=== PATIENT | male | born 1985 | race Caucasian/White ===

== ENCOUNTER 2016-10-07 11:06 | Emergency (ER) | payer OTHER ==
[~2016-10-07] VITALS: Ht 167.6 cm; Wt 88.0 kg
[~2016-10-07 11:06] MED LIST: ACETAMINOPHEN325 M1 PO; BENZTROPINE MESY1 MG PO; COLACE100 MG PO; DAILY VITE1 EAC1 PO; DEPAKOTE ER500 MG PO; DIAZEPAM5 MG PO; DOCUPRENE100 MG PO; DULCOLAX10 MG PR; ENULOSE10 GM/15 M PO; IMODIUM MS REL1 EACH PO; LATANOPROST2.5 ML BOTH EYES; LIPITOR40 MG PO; LISINOPRIL20 MG PO; MECLIZINE HCL25 MG PO; NORVASC10 MG PO; NYSTOP60 GM; OXCARBAZEPINE600 MG PO; OXTELLAR XR600 MG PO; PANTOPRAZOLE SO40 MG; POLYETHYLENE G255 GM PO; PRILOSEC20 MG PO; PROAIR HFA8.5 GM IH; PROPRANOLOL HCL20 MG PO; QUETIAPINE FUM100 MG PO; RISPERIDONE2 MG PO; SEROQUEL XR400 MG PO; SINGULAIR10 MG PO; VITAMIN D250000 UNIT; ZANTAC150 MG PO; ZESTRIL,PRINIVI10 MG PO
[2016-10-07 13:08] LABS: ADD MIUA? NO; BILIRUBIN NEGATIVE; BLOOD NEGATIVE; COLOR YELLOW ((YELLOW)); GLUCOSE (STRIP) NEGATIVE; KETONES NEGATIVE; LEUKOCYTES NEGATIVE; NITRITE NEGATIVE; PROTEIN (STRIP) NEGATIVE; SPECIFIC GRAVITY 1.015 (1.000-1.030); UROBILINOGEN 0.2 MG/DL (0.2-1.0)
[2016-10-07 14:02] LABS: EOSINOPHIL (%) 0.6 % (0-5); HEMATOCRIT 42.6 % (38.0-50.0); IMMATURE GRANULOCYTE (%) 0.4 % (0.0-0.7); INSTRUMENT ABS NEUTROPHIL CT 3.4 K/uL; LYMPHOCYTE COUNT 0.9 K/uL (1.0-2.8); MCH 29.1 PG (29.0-34.0); MCV 85.5 FL (86-99); MEAN PLAT.VOLUME 10.3 uM^3 (9.0-12.4); MONOCYTE (%) 5.6 % (3-12); MONOCYTE COUNT 0.3 K/uL (0-0.8); NEUTROPHIL (%) 73.7 % (45-76); NEUTROPHIL COUNT 3.4 K/uL (1.8-6.4); PLATELET COUNT 126 K/uL (156-360); RBC DIS.WIDTH-CV 13.3 % (11.8-14.6); RBC DIS.WIDTH-SD 41.1 % (39-53); RED BLOOD COUNT 4.98 M/uL (4.00-5.50); WHITE BLOOD COUNT 4.7 K/uL (4.1-10.2)
[2016-10-07 14:08] LABS: AMPHETAMINE NEGATIVE (500 ng/mL); BARBITURATES NEGATIVE (200 ng/mL); BENZODIAZEPINES NEGATIVE (150 ng/mL); COCAINE NEGATIVE (150 ng/mL); INTERNAL CONTROLS VALID? YES; METHADONE NEGATIVE (200 ng/mL); METHAMPHETAMINE NEGATIVE (500 ng/mL); OPIATES (MORPHINE) NEGATIVE (100 ng/mL); OXYCODONE NEGATIVE (100 ng/mL); PHENCYCLIDINE NEGATIVE (25 ng/mL); PROPOXYPHENE NEGATIVE (300 ng/mL); THC CANNABINOIDS NEGATIVE (50 ng/mL); TRICYCLIC ANTIDEPRESSANTS PRESUMPTIVE POSITIVE (300 ng/mL)
[2016-10-07 14:11] LABS: CHLORIDE 103 mEq/L (99-109); POTASSIUM 3.9 mEq/L (3.7-5.4); SODIUM 136 mEq/L (136-147)
[2016-10-07 14:13] LABS: GLUCOSE 77 mg/dL (70-99)
[2016-10-07 14:14] LABS: ANION GAP 12 MEQ/L (2-14)
[2016-10-07 14:16] LABS: SERUM ETHYL ALCOHOL < 10 mg/dL
[2016-10-07 14:17] LABS: GFR ESTIMATE (CALCULATED) > 59 mL/min/
[2016-10-07 14:18] LABS: UREA NITROGEN (BUN) 9 mg/dL (9-23)
[2016-10-07 17:50] VITALS: BP 120/76
== END 2016-10-07 19:19 ==
LOC: EME 11:06
PROVIDERS: Emergency Medicine
DX: S60.812A Abrasion of left wrist, initial encounter (principal); X78.8XXA Intentional self-harm by other sharp object, initial encounter; Y92.199 Unspecified place in other specified residential institution as the place of occurrence of the external cause; F31.9 Bipolar disorder, unspecified; Z87.820 Personal history of traumatic brain injury; I10 Essential (primary) hypertension; J45.909 Unspecified asthma, uncomplicated; K21.9 Gastro-esophageal reflux disease without esophagitis; Z95.1 Presence of aortocoronary bypass graft
CPT/HCPCS: 80048; 81003; 85025; 90837; 99281; 99285; G0480

== ENCOUNTER 2016-12-22 19:31 | Emergency (ER) | payer OTHER ==
[~2016-12-22] VITALS: Ht 177.8 cm; Wt 87.6 kg
[2016-12-22 22:05] LABS: HEMATOCRIT 40.6 % (38.0-50.0); MCH 29.3 PG (29.0-34.0); MCHC 34.7 G/DL (30.0-36.0); MCV 84.2 FL (86-99); MEAN PLAT.VOLUME 10.5 uM^3 (9.0-12.4); PLATELET COUNT 153 K/uL (156-360); RBC DIS.WIDTH-CV 13.1 % (11.8-14.6); RBC DIS.WIDTH-SD 40.2 % (39-53); RED BLOOD COUNT 4.82 M/uL (4.00-5.50); WHITE BLOOD COUNT 6.5 K/uL (4.1-10.2)
[2016-12-22 22:15] LABS: CHLORIDE 104 mEq/L (99-109); POTASSIUM 4.3 mEq/L (3.7-5.4); SODIUM 136 mEq/L (136-147)
[2016-12-22 22:16] LABS: GLUCOSE 100 mg/dL (70-99)
[2016-12-22 22:18] LABS: ANION GAP 8 MEQ/L (2-14)
[2016-12-22 22:19] LABS: SERUM ETHYL ALCOHOL < 10 mg/dL
[2016-12-22 22:20] LABS: GFR ESTIMATE (CALCULATED) > 59 mL/min/
[2016-12-22 22:21] LABS: UREA NITROGEN (BUN) 13 mg/dL (9-23)
[2016-12-23 00:06] VITALS: BP 131/80
== END 2016-12-23 00:08 ==
LOC: EME 19:31
PROVIDERS: Emergency Medicine
DX: F32.9 Major depressive disorder, single episode, unspecified (principal); R45.851 Suicidal ideations; F31.9 Bipolar disorder, unspecified; K21.9 Gastro-esophageal reflux disease without esophagitis; I10 Essential (primary) hypertension; J45.909 Unspecified asthma, uncomplicated; Z87.820 Personal history of traumatic brain injury; Z95.1 Presence of aortocoronary bypass graft; Z98.2 Presence of cerebrospinal fluid drainage device
CPT/HCPCS: 80048; 81003; 85027; 90837; 99281; 99285; G0480

== ENCOUNTER 2017-04-11 12:11 | Emergency (ER) | payer OTHER ==
[~2017-04-11] VITALS: Ht 167.6 cm; Wt 89.3 kg
[2017-04-11 13:33] LABS: HEMATOCRIT 39.5 % (38.0-50.0); MCH 29.8 PG (29.0-34.0); MCHC 34.7 G/DL (30.0-36.0); MCV 85.9 FL (86-99); MEAN PLAT.VOLUME 10.6 uM^3 (9.0-12.4); PLATELET COUNT 133 K/uL (156-360); RBC DIS.WIDTH-CV 13.1 % (11.8-14.6); RBC DIS.WIDTH-SD 40.4 % (39-53); WHITE BLOOD COUNT 4.9 K/uL (4.1-10.2)
[2017-04-11 14:04] LABS: ANION GAP 7 MEQ/L (2-14); CHLORIDE 101 MEQ/L (99-109); GFR ESTIMATE (CALCULATED) > 59 mL/min/; GLUCOSE 84 mg/dL (70-99); POTASSIUM 4.1 MEQ/L (3.7-5.4); SAMPLE HEMOLYSIS CHECK 1; SAMPLE ICTERIC CHECK 0; SAMPLE LIPEMIA CHECK 0; SERUM ETHYL ALCOHOL < 10 mg/dL; SODIUM 133 MEQ/L (136-147); UREA NITROGEN (BUN) 11 mg/dL (9-23)
[2017-04-11 14:21] VITALS: BP 122/80
== END 2017-04-11 14:23 | disposition home or self-care (01) ==
LOC: EME 12:11
DX: F32.9 Major depressive disorder, single episode, unspecified (principal); F31.9 Bipolar disorder, unspecified; I10 Essential (primary) hypertension; K21.9 Gastro-esophageal reflux disease without esophagitis; J45.909 Unspecified asthma, uncomplicated; Z95.1 Presence of aortocoronary bypass graft; Z98.2 Presence of cerebrospinal fluid drainage device; Z87.820 Personal history of traumatic brain injury; Z88.8 Allergy status to other drugs, medicaments and biological substances
CPT/HCPCS: 80048; 85027; 90839; 99281; 99284; G0480

== ENCOUNTER 2017-04-11 16:37 | Emergency (ER) | payer OTHER ==
[~2017-04-11] VITALS: Ht 175.3 cm; Wt 89.2 kg
[2017-04-11 22:52] VITALS: BP 110/77
== END 2017-04-11 22:55 | disposition home or self-care (01) ==
LOC: RME 16:37 → EME 16:37 → RME 22:55
DX: S09.90XA Unspecified injury of head, initial encounter (principal); S40.011A Contusion of right shoulder, initial encounter; W01.198A Fall on same level from slipping, tripping and stumbling with subsequent striking against other object, initial encounter; K21.9 Gastro-esophageal reflux disease without esophagitis; I10 Essential (primary) hypertension; J45.909 Unspecified asthma, uncomplicated; F31.9 Bipolar disorder, unspecified; Z91.81 History of falling; Z87.820 Personal history of traumatic brain injury; Z95.1 Presence of aortocoronary bypass graft; Z98.2 Presence of cerebrospinal fluid drainage device; Z88.8 Allergy status to other drugs, medicaments and biological substances
CPT/HCPCS: 70450; 73030; 99281; 99283

== ENCOUNTER 2017-04-17 14:06 | Emergency (ER) | payer OTHER ==
[~2017-04-17] VITALS: Ht 170.2 cm; Wt 87.5 kg
[2017-04-17 15:58] VITALS: BP 129/75
== END 2017-04-17 15:59 | disposition home or self-care (01) ==
LOC: EME 14:06
DX: M79.652 Pain in left thigh (principal); R26.2 Difficulty in walking, not elsewhere classified; Z91.81 History of falling; I10 Essential (primary) hypertension; J45.909 Unspecified asthma, uncomplicated; Z95.1 Presence of aortocoronary bypass graft; Z98.2 Presence of cerebrospinal fluid drainage device; Z87.820 Personal history of traumatic brain injury
CPT/HCPCS: 73552; 99281; 99284

== ENCOUNTER → 2017-09-02 | Outpatient (CLI) | payer OTHER ==
[~2017-09-02] VITALS: Ht 170.2 cm; Wt 95.7 kg
[~2017-09-02] MED LIST changes: +ALPHAGAN P100 DROP/5 RIGHT EYE; +BENEFIBER152 GM PO; +DEBROX15 ML BOTH EARS; +INDERAL20 MG PO
== END | disposition home or self-care (01) ==
LOC: AMB 09:53
PROC: 0DJD8ZZ Inspection of Lower Intestinal Tract, Via Natural or Artificial Opening Endoscopic (ICD-10-PCS; principal; 2017-09-02)
DX: K64.8 Other hemorrhoids (principal); K59.09 Other constipation; J45.909 Unspecified asthma, uncomplicated; I10 Essential (primary) hypertension; H40.9 Unspecified glaucoma; F48.9 Nonpsychotic mental disorder, unspecified; Z87.820 Personal history of traumatic brain injury; Z87.891 Personal history of nicotine dependence

== ENCOUNTER 2017-12-22 16:16 | Emergency (ER) | payer OTHER ==
[~2017-12-22] VITALS: Ht 172.7 cm; Wt 92.4 kg
[2017-12-22 17:05] LABS: HEMATOCRIT 40.7 % (38.0-50.0); HEMOGLOBIN 14.4 G/DL (12.5-16.6); MCH 30.8 PG (29.0-34.0); MCHC 35.4 G/DL (30.0-36.0); PLATELET COUNT 160 K/uL (156-360); RBC DIS.WIDTH-CV 12.7 % (11.8-14.6); RBC DIS.WIDTH-SD 40.2 % (39-53); RED BLOOD COUNT 4.68 M/uL (4.00-5.50); WHITE BLOOD COUNT 5.9 K/uL (4.1-10.2)
[2017-12-22 17:16] LABS: CHLORIDE 105 mEq/L (99-109); POTASSIUM 4.7 mEq/L (3.7-5.4); SODIUM 138 mEq/L (136-147)
[2017-12-22 17:18] LABS: GLUCOSE 95 mg/dL (70-99)
[2017-12-22 17:21] LABS: SERUM ETHYL ALCOHOL < 10 mg/dL
[2017-12-22 17:22] LABS: GFR ESTIMATE (CALCULATED) > 59 mL/min/ (58.99-99999)
[2017-12-22 17:23] LABS: UREA NITROGEN (BUN) 10 mg/dL (9-23)
[2017-12-22 17:25] LABS: ACETAMINOPHEN (TYLENOL) < 10 mcg/mL (10-30); SALICYLATE < 5.0 MG/DL (15-30)
[2017-12-22 19:07] VITALS: BP 130/80
== END 2017-12-22 19:00 | disposition home or self-care (01) ==
LOC: EME 16:16
PROVIDERS: Physician Assistant
DX: S00.83XA Contusion of other part of head, initial encounter (principal); R45.851 Suicidal ideations; Z87.820 Personal history of traumatic brain injury; X83.8XXA Intentional self-harm by other specified means, initial encounter; F31.9 Bipolar disorder, unspecified; R41.9 Unspecified symptoms and signs involving cognitive functions and awareness; F32.9 Major depressive disorder, single episode, unspecified; I10 Essential (primary) hypertension; K21.9 Gastro-esophageal reflux disease without esophagitis; H54.61 Unqualified visual loss, right eye, normal vision left eye; Z98.2 Presence of cerebrospinal fluid drainage device; Z88.8 Allergy status to other drugs, medicaments and biological substances
CPT/HCPCS: 70450; 80048; 85027; 90839; 99281; 99285; G0480

== ENCOUNTER 2017-12-23 13:19 | Emergency (ER) | payer OTHER ==
[~2017-12-23] VITALS: Ht 177.8 cm; Wt 92.3 kg
[2017-12-23 15:52] VITALS: BP 123/88
== END 2017-12-23 15:55 | disposition home or self-care (01) ==
LOC: EME 13:19
DX: F41.9 Anxiety disorder, unspecified (principal); F31.9 Bipolar disorder, unspecified; S09.90XA Unspecified injury of head, initial encounter; W22.8XXA Striking against or struck by other objects, initial encounter; Z04.6 Encounter for general psychiatric examination, requested by authority; F32.9 Major depressive disorder, single episode, unspecified; Z87.820 Personal history of traumatic brain injury; I10 Essential (primary) hypertension; J45.909 Unspecified asthma, uncomplicated; K21.9 Gastro-esophageal reflux disease without esophagitis; H54.61 Unqualified visual loss, right eye, normal vision left eye; Z95.1 Presence of aortocoronary bypass graft; Z98.2 Presence of cerebrospinal fluid drainage device
CPT/HCPCS: 70450; 90837; 99281; 99285